=== PATIENT | male | born 1955 | race Caucasian/White ===

== ENCOUNTER → 2018-07-26 | Day surgery (SDC) | payer BC ==
[~2018-07-26] MED LIST: Lactated Ringers 1,000 ML IV SCH; Propofol 200 MG/20 ML SDV IV ONE
--- NOTE | 2018-07-29 10:19 | OR ---
DATE OF OPERATION: 07/26/2018 PREOPERATIVE DIAGNOSIS: SCREENING COLONOSCOPY. POSTOPERATIVE DIAGNOSIS: SCREENING COLONOSCOPY. SURGEON: Jamil Serrano MD PROCEDURE: FULL-LENGTH COLONOSCOPY. ANESTHESIA: FICTION AND NONFICTION WRITER PROSE. COMPLICATIONS: None. SPECIMEN: None. FINDINGS: 1. Full-length colonoscopy. 2. Mild to moderate sigmoid diverticulosis. RECOMMENDATIONS: Follow up colonoscopy every 10 years. INDICATIONS: Mr. Herr was in for routine physical. His primary provider, Edgar Corbin. He had never had a prior screening colonoscopy. DESCRIPTION OF PROCEDURE: The patient was prepped and draped, placed in the left lateral decubitus position. A lubricated Olympus colonoscope was inserted and easily advanced to the cecum. We were able to directly visualize the ileocecal valve and appendiceal orifice. The bowel prep was adequate. Upon withdrawal of the scope, the right transverse and descending colons were benign. The patient had scattered diverticulosis throughout most of the sigmoid and the rectosigmoid junction, mild to moderate in severity. No significant inflammatory changes were seen. I could find no signs of any polyps, mass, ulceration, or bleeding sites. No vascular abnormalities or signs of colitis. The rectal vault was unremarkable. Retroflexion of scope in the rectum showed no anal lesions. There were some areas in the sigmoid and rectal vault that were plugging our scope with suction, so there were a few areas we were not able to visualize overly thoroughly, but I do not believe any bigger lesions would be missed. FRANCISCA/MICHAEL /[id number] cc: HAMLET Crews [place], [place]
== END ==
LOC: CC.SDS 09:52
PROVIDERS: ATTEND Family Medicine
DX: Z12.11 Encounter for screening for malignant neoplasm of colon (principal); K57.30 Diverticulosis of large intestine without perforation or abscess without bleeding; I10 Essential (primary) hypertension; I25.10 Atherosclerotic heart disease of native coronary artery without angina pectoris; E78.5 Hyperlipidemia, unspecified; I25.2 Old myocardial infarction; Z79.02 Long term (current) use of antithrombotics/antiplatelets; Z79.899 Other long term (current) drug therapy
CPT/HCPCS: 45378; J2704; J7120